=== PATIENT | male | born 1960 | race Caucasian/White ===

== ENCOUNTER 2024-06-01 17:18 | Emergency (ER) | payer SELFPAY ==
[2024-06-01 17:33] VITALS: BP 157/78
[2024-06-01] MEDS: KEFLEX 500 MG PO (19:26)
[2024-06-01 19:29] VITALS: BP 147/86
--- NOTE | 2024-06-01 20:00 | ED.GENMED ---
History of Present Illness
General
Chief Complaint: Musculo-Skeletal Complaint
Source: patient
Exam Limitations: none
Time Seen by Provider: 06/01/24 18:05
History of Present Illness
History of Present Illness:
63-year-old male [id number] diabetic presents complaining of increased swelling and bruising to the left large toe. A marble tipped over and landed on his toe several days ago. He worked again today and was seen at the urgent care and
was sent here for further evaluation. He notes he has a small amount of neuropathy in his foot. No significant pain currently. No other complaints at this time
Phy Exam
Physical Exam
Physical Exam:
General: Well-appearing male no acute respiratory distress
HEENT: Normocephalic atraumatic
Musculoskeletal exam: Left large toe ecchymotic and swollen no tenderness. The nail is loose. No significant deformity. No surrounding erythema or lymphangitic streaking no drainage
Extremities: No cyanosis or edema
Skin is warm no rash
Course
Orders/Labs/Results
Orders:
Orders
06/01/24 19:15
Cephalexin Monohydrate [Keflex] 500 mg PO NOW STA
Vital Signs
Initial and Last Documented VS:
Initial Vital Signs
Temp Pulse Resp BP Pulse Ox
98.2 F 85 18 157/78 97
06/01/24 17:33 06/01/24 17:33 06/01/24 17:33 06/01/24 17:33 06/01/24 17:33
Last Documented Vital Signs
Temp Pulse Resp BP Pulse Ox
98.2 F 83 18 147/86 98
06/01/24 19:29 06/01/24 19:29 06/01/24 19:29 06/01/24 19:29 06/01/24 19:29
MDM/Problems Addressed
Differential Diagnosis Includes:
Patient with ecchymosis to left large toe. Visualized x-rays from the urgent care through [facility] and there is a nondisplaced tuft fracture of the distal phalanx in the horizontal direction. Exam most consistent with hematoma. Given the diabetic
nature concern for possible early cellulitis however less likely. Will cover with Keflex but advise elevation for swelling otherwise. No indication for admission at this time. Return precautions were given
*Critical Care Note
Total Time (30-74mins, 75-104mins- exclusive of procedures): Not Applicable
ED Attending Note
-
Portions of this chart may have been created with voice recognition software.� Occasional wrong word or��sound alike� substitutions may have occurred due to the inherent limitations of voice recognition software.
Discharge Plan
Departure
Patient Disposition: Home (Routine Discharge)
Date of Disposition: 06/01/24
Time of Disposition: 20:03
Patient with high blood pressure during this ER visit?: No
Discharge Problem:
Fracture of toe
Instructions: Muscle and Bone Pain (DC)
Prescriptions:
New
cephalexin 500 mg capsule
500 mg PO QID 7 Days Qty: 28 0RF
Referrals:
Mitra Vizcaino E, DO [Family Provider] -
Activity Restrictions/Additional Instructions:
Elevate for swelling. Use Tylenol if needed for pain. Please return here for increasing redness swelling pain fever or other concerning finding. Take antibiotic as directed
Interventions
Interventions:
*Risk Screen - Suicide Last Done: 06/01/24 18:44
*General Assessment Last Done: 06/01/24 18:44
*Neglect/Abuse Screening Last Done: 06/01/24 18:44
ED- Fall Risk Assessment Last Done: 06/01/24 18:44
*ED COVID-19 Vaccine History Last Done: 06/01/24 18:44
ED-Musculoskeletal Assessment Last Done: 06/01/24 18:44
Discharge Date and Time
Print Language: SAO TOMEAN
== END 2024-06-01 20:14 | disposition home or self-care (01) ==
LOC: EMR 17:18
PROVIDERS: EMERGENCY PHYSICIAN Emergency Medicine; FAMILY PHYSICIAN Family Medicine
DX: S92.425A Nondisplaced fracture of distal phalanx of left great toe, initial encounter for closed fracture (principal); W20.8XXA Other cause of strike by thrown, projected or falling object, initial encounter; E11.9 Type 2 diabetes mellitus without complications; G62.9 Polyneuropathy, unspecified
CPT/HCPCS: 99283